=== PATIENT | male | born 1970 | race Hispanic/Latino ===

== ENCOUNTER 2018-10-14 11:05 | Emergency (ER) | payer SELFPAY ==
[2018-10-14] MEDS ORDERED: KETOROLAC TROMETHAMINE 30MG/ML ONE (12:32)
== END 2018-10-14 12:44 | disposition home or self-care (01) ==
LOC: EDH 11:05
DX: S93.491A Sprain of other ligament of right ankle, initial encounter (principal); X58.XXXA Exposure to other specified factors, initial encounter; Y93.89 Activity, other specified; Y92.69 Other specified industrial and construction area as the place of occurrence of the external cause; Y99.8 Other external cause status
CPT/HCPCS: 73610; 96372; 99284; J1885